=== PATIENT | male | born 1980 | race Caucasian/White ===

== ENCOUNTER 2018-10-08 15:38 | Emergency (ER) | payer OTHER ==
[2018-10-08 15:54] VITALS: PULSE 68; O2SAT 99
--- NOTE | 2018-10-08 16:45 | ERPHSYRPT ---
- History of Present Illness Time Seen by Provider: 10/08/18 16:39 Source: patient Exam Limitations: no limitations Patient Subjective Stated Complaint: Pt states "On saturday I was loading a lawnmower into a truck and the tailgate fell and hit the top of my head and I thought I was ok, but yesterday at work, I started to get a little woozy and my head is fuzzy." Triage Nursing Assessment: Pt presented through the front, alert and oriented X 3, skin pwd. Pt ambulates with an upright steady gait, able to speak in clear full sentences PT able to control oral secretions and swallow without any difficulty. Physician History: 38-year-old white male arrives with complaint of a headache dizziness, symptoms going on for 2 days. According to the patient he was unloading a lawnmower when the tailgate of his truck fell and struck him in the head. He had no loss of consciousness however he states yesterday at work he was feeling dizzy and woozy. Is not having any neck pain is not having any problems moving. Past medical history includes high blood pressure, GERD, depression. Past surgical history includes cholecystectomy. Social history positive tobacco use Timing/Duration: day(s) Severity: moderate (2 days) Modifying Factors: Improves With: nothing Associated Symptoms: headaches, other (dizziness), No nausea, No vomiting, No abdominal pain, No shortness of breath, No heartburn, No diaphoresis, No cough, No chills, No chest pain, No fever, No loss of appetite, No malaise, No rash, No syncope, No seizure, No weakness Allergies/Adverse Reactions: No Known Drug Allergies Allergy (Unverified 10/08/18 15:54) Home Medications: Diazepam [Valium] 2 mg PO DAILY 10/08/18 [History] Hx Tetanus, Diphtheria Vaccination/Date Given: No Hx Influenza Vaccination/Date Given: No Hx Pneumococcal Vaccination/Date Given: No Immunizations Up to Date: Yes - Review of Systems Constitutional: No Fever, No Chills Eyes: No Symptoms Ears, Nose, & Throat: No Symptoms Respiratory: No Cough, No Dyspnea Cardiac: No Chest Pain, No Edema, No Syncope Abdominal/Gastrointestinal: No Abdominal Pain, No Nausea, No Vomiting, No Diarrhea Genitourinary Symptoms: No Dysuria Musculoskeletal: No Back Pain, No Neck Pain Skin: No Rash Neurological: No Dizziness, No Focal Weakness, No Sensory Changes Psychological: No Symptoms Endocrine: No Symptoms All Other Systems: Reviewed and Negative - Past Medical History Pertinent Past Medical History: Yes Neurological History: No Pertinent History ENT History: No Pertinent History Cardiac History: No Pertinent History, Hypertension Respiratory History: Asthma Endocrine Medical History: No Pertinent History Musculoskeletal History: No Pertinent History GI Medical History: GERD History: No Pertinent History Psycho-Social History: Depression Male Reproductive Disorders: No Pertinent History - Past Surgical History Past Surgical History: Yes Other Surgical History: ramesh - Social History Smoking Status: Current every day smoker How long have you smoked: 26 years Exposure to second hand smoke: Yes Drug Use: methamphetamines Patient Lives Alone: No - Nursing Vital Signs Nursing Vital Signs: Initial Vital Signs Temperature 97.9 F 10/08/18 15:47 Pulse Rate 68 10/08/18 15:47 Respiratory Rate 16 10/08/18 15:47 Blood Pressure 131/89 10/08/18 15:47 O2 Sat by Pulse Oximetry 99 10/08/18 15:47 Pain Scale Pain Intensity 5 - Physical Exam General Appearance: no apparent distress, alert Eye Exam: PERRL/EOMI, eyes nml inspection Ears, Nose, Throat Exam: normal ENT inspection, TMs normal, pharynx normal, moist mucous membranes Neck Exam: normal inspection, non-tender, supple, full range of motion Respiratory Exam: normal breath sounds, lungs clear, No respiratory distress Cardiovascular Exam: regular rate/rhythm, normal heart sounds, normal peripheral pulses, capillary refill <2 sec Gastrointestinal/Abdomen Exam: soft, normal bowel sounds, No tenderness, No mass Back Exam: normal inspection, normal range of motion, No CVA tenderness, No vertebral tenderness Extremity Exam: normal inspection, normal range of motion, pelvis stable Neurologic Exam: alert, oriented x 3, 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, 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 Will give patient Tylenol for pain discharge patient diagnoses 1 head contusion 2 concussion. - Departure Departure Disposition: Home Clinical Impression: Head contusion Qualifiers: Encounter type: initial encounter Contusion of head detail: unspecified part of head Qualified Code(s): S00.93XA - Contusion of unspecified part of head, initial encounter Concussion Qualifiers: Encounter type: initial encounter Loss of consciousness presence/duration: without LOC Qualified Code(s): S06.0X0A - Concussion without loss of consciousness, initial encounter Condition: Fair Critical Care Time: No Referrals: Provider,Unknown [Primary Care Provider] - Instructions: Concussion, Adult (DC) Additional Instructions: Return home. Rest. Tylenol every 4 hours as needed for pain. Followup with your family call and schedule follow up appointment. Return for acute distress or for severe symptoms.
[2018-10-08 17:07] VITALS: BP 153/93
--- NOTE | 2018-10-08 17:12 | XRAY ---
Indication: Headache and dizziness following head injury 2 days ago. Multiple contiguous axial images obtained through the head without contrast. Comparison: None Normal appearing brain parenchyma, ventricles, and bony calvarium. Visualized paranasal sinuses and mastoid air cells are clear. Impression: Normal CT head without contrast exam. CTDI 50.14
[2018-10-08] MEDS ORDERED: TYLENOL 325 MG PO ONE (17:15)
[2018-10-08] MEDS ORDERED: TYLENOL 325 MG ONE (17:25)
== END 2018-10-08 18:03 | disposition home or self-care (01) ==
LOC: ED 15:38
DX: S00.93XA Contusion of unspecified part of head, initial encounter (principal); S06.0X0A Concussion without loss of consciousness, initial encounter; W01.198A Fall on same level from slipping, tripping and stumbling with subsequent striking against other object, initial encounter
CPT/HCPCS: 70450; 99283; A9270-GY

== ENCOUNTER 2022-02-27 15:50 | Emergency (ER) | payer OTHER ==
[2022-02-27] MEDS ORDERED: TORAdol 30 mg Injection ONE (16:57)
[2022-02-27] MEDS: TORAdol 30 mg Injection IM ONE (16:58)
[2022-02-27 17:07] LABS: Basophil (Absolute #) 0.14 x10^3/uL (0-0.4); Eosinophil % 2.5 % (0.00-5.0); Hematocrit 42.7 % (42-50); Hemoglobin 14.2 g/dL (12.5-18.0); Lymphocyte (Absolute #) 5.07 x10^3/uL (1.0-4.6); Mean Cell Volume 89.9 fL (78-100); Mean Corpuscular Hemoglobin 29.9 pg (26-32); Mean Corpuscular Hgb Concent. 33.3 g/dL (32-36); Monocyte (Absolute #) 0.83 x10^3/uL (0.0-1.3); Monocytes % 6.9 % (0.0-12.0); Neutrophil % 47.2 % (36.0-66.0); Platelet Count 294 x10^3/uL (150-450); Red Blood Count 4.75 x10^6/uL (4.1-5.6); Red Cell Distribution Width 12.8 % (11.5-14.0); White Blood Count 12.1 x10^3/uL (4.0-10.5)
[2022-02-27 17:36] LABS: ALKALINE PHOSPHATASE 66 U/L (38-126); AMYLASE 73 U/L (30-110); ANION GAP 9.6 MEQ/L (5-15); BLOOD UREA NITROGEN 12 mg/dL (9-20); CHLORIDE 104 mmol/L (98-107); Calcium 8.8 mg/dL (8.4-10.2); Carbon Dioxide 26 mmol/L (22-30); Creatinine 1 1.23 mg/dL (0.66-1.25); EST GLOMERULAR FILTRATION RATE > 60.0 ML/MIN; Glucose 101 mg/dL (74-106); LIPASE 93 U/L (23-300); Potassium 3.3 mmol/L (3.5-5.1); SGOT/AST 24 U/L (17-59); SGPT/ALT 20 U/L (0-50); SODIUM 136 mmol/L (137-145); Total Protein 7.2 g/dL (6.3-8.2)
--- NOTE | 2022-02-27 18:06 | ERPHSYRPT ---
- History of Present Illness Source: patient Exam Limitations: no limitations Patient Subjective Stated Complaint: C/O lower back pain that started yesterday evening. States, "my kidneys hurt." Denies any frequency, urgency, dysuria, or trauma to back or abdomen. Triage Nursing Assessment: Patient ambulated back to ED without difficulties. No SOB. He is alert and oriented. No skin alterations noted to lower back or flanks. Patient is tender to touch. Timing/Duration: yesterday Quality: sharp, aching Back Pain Location: lumbar spine (Bilateral CVA tenderness) Previous symptoms: no prior history Hx Tetanus, Diphtheria Vaccination/Date Given: Yes Hx Influenza Vaccination/Date Given: No Hx Pneumococcal Vaccination/Date Given: No Immunizations Up to Date: Yes <DASH FRIAS - Last Filed: 02/27/22 18:47> <JAKE JAMES - Last Filed: 02/27/22 19:19> - History of Present Illness Time Seen by Provider: 02/27/22 16:40 Physician History: Patient is a 41-year-old male who presents with a complaint of back pain. His pain is primarily in both CVA's. He noted the pain started yesterday evening it seems a little worse on the right. He has no known injury to the back he has no history of renal stones he denies any fever chills or sweats he denies any change in urination. (DASH FRIAS) Allergies/Adverse Reactions: No Known Drug Allergies Allergy (Verified 02/27/22 16:30) Home Medications: Escitalopram Oxalate [Lexapro] 20 mg PO DAILY 02/27/22 [History] Lurasidone HCl [Latuda] 1 tab PO DAILY 02/27/22 [History] Omeprazole 1 tab PO DAILY 02/27/22 [History] Trazodone HCl 50 mg [Desyrel 50 mg] 1 tab PO DAILY 02/27/22 [History] Trihexyphenidyl HCl 1 tab PO BID 02/27/22 [History] Travel Risk - International Travel Have you traveled outside of the country in past 3 weeks: No - Coronavirus Screening Are you exhibiting any of the following symptoms?: No Close contact with a COVID-19 positive Pt in past 14-21 Days: No - Vaccine Status Have you recieved a Covid-19 vaccination: Yes 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 - Vaccination Dates Date of 2cond Vaccination (if applicable): 2020 <ALTAGRACIADASH - Last Filed: 02/27/22 18:47> - Review of Systems Constitutional: No Fever, No Chills Eyes: No Symptoms Ears, Nose, & Throat: No Symptoms Respiratory: No Cough, No Dyspnea Cardiac: No Chest Pain, No Edema, No Syncope Abdominal/Gastrointestinal: No Abdominal Pain, No Nausea, No Vomiting, No Diarrhea Genitourinary Symptoms: No Dysuria Musculoskeletal: Back Pain, No Neck Pain Skin: No Rash Neurological: No Dizziness, No Focal Weakness, No Sensory Changes Psychological: No Symptoms Endocrine: No Symptoms All Other Systems: Reviewed and Negative <ALTAGRACIADASH - Last Filed: 02/27/22 18:47> - Past Medical History Pertinent Past Medical History: Yes Neurological History: No Pertinent History ENT History: No Pertinent History Cardiac History: High Cholesterol, Hypertension Respiratory History: Asthma, COPD Endocrine Medical History: No Pertinent History Musculoskeletal History: No Pertinent History GI Medical History: GERD, Gallbladder Disease History: No Pertinent History Psycho-Social History: Bipolar, Depression Male Reproductive Disorders: No Pertinent History - Past Surgical History Past Surgical History: Yes Gastrointestinal: Cholecystectomy Other Surgical History: ramesh - Social History Smoking Status: Current every day smoker How long have you smoked: 30+ Exposure to second hand smoke: Yes Drug Use: methamphetamines Patient Lives Alone: No <ALTAGRACIADASH Last Filed: 02/27/22 18:47> - Physical Exam General Appearance: mild distress Eye Exam: PERRL/EOMI, eyes nml inspection Neck Exam: normal inspection, non-tender, supple, full range of motion, No meningismus, No midline tenderness Respiratory Exam: normal breath sounds, lungs clear, No respiratory distress Cardiovascular Exam: regular rate/rhythm, normal heart sounds Gastrointestinal Exam: soft, No tenderness, No mass Back Exam: CVA tenderness (Bilateral) Extremity Exam: normal inspection, normal range of motion, No calf tenderness, N o pedal edema Neurologic Exam: alert, oriented x 3, 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, 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, normal mood/affect, nml station & gait, sensation nml, No motor deficits Skin Exam: normal color, warm, dry, No rash SpO2: 98 <DASH FRIAS Last Filed: 02/27/22 18:47> - Nursing Vital Signs Nursing Vital Signs: Initial Vital Signs Temperature 97.6 F 02/27/22 16:32 Pulse Rate 76 02/27/22 16:32 Respiratory Rate 17 02/27/22 16:32 Blood Pressure 139/80 02/27/22 16:32 O2 Sat by Pulse Oximetry 98 02/27/22 16:32 Pain Scale Pain Intensity 4 - Course Nursing assessment & vital signs reviewed: Yes <DASH FRIAS - Last Filed: 02/27/22 18:47> Ordered Tests: Active Orders 24 hr Category Date Time Status ABDOMEN AND PELVIS W/0 CONTRAS [CT] Stat Exams 02/27/22 16:42 Taken AMYLASE Stat Lab 02/27/22 17:00 Completed CBC W DIFF Stat Lab 02/27/22 17:00 Completed CMP Stat Lab 02/27/22 17:00 Completed LIPASE Stat Lab 02/27/22 17:00 Completed Lactic Acid Stat Lab 02/27/22 16:42 Completed UA W/RFX CULTURE Stat Lab 02/27/22 18:56 Received Medication Summary Discontinued Medications Generic Name Dose Route Start Last Admin Trade Name Isaiah PRN Reason Stop Dose Admin Ketorolac Tromethamine 30 mg 02/27/22 16:43 02/27/22 16:58 Ketorolac Tromethamine 30 Mg/Ml Inj IM 02/27/22 16:44 30 mg STAT ONE Administration Ketorolac Tromethamine Confirm 02/27/22 16:57 Ketorolac Tromethamine 30 Mg/Ml Inj Administered 02/27/22 16:58 Dose 30 mg .ROUTE .STK-MED ONE Lab/Rad Data: Laboratory Result Diagrams 02/27/22 17:00 02/27/22 17:00 Laboratory Results 02/27/22 02/27/22 02/27/22 Range/Units 17:00 17:00 16:42 WBC 12.1 H (4.0-10.5) x10^3/uL RBC 4.75 (4.1-5.6) x10^6/uL Hgb 14.2 (12.5-18.0) g/dL Hct 42.7 (42-50) % MCV 89.9 (78-100) fL MCH 29.9 (26-32) pg MCHC 33.3 (32-36) g/dL RDW 12.8 (11.5-14.0) % Plt Count 294 (150-450) x10^3/uL MPV 9.0 (7.5-11.0) fL Gran % 47.2 (36.0-66.0) % Immature Gran % (Auto) 0.2 (0.00-0.4) % Nucleat RBC Rel Count 0.0 (0.00-0.1) % Eos # (Auto) 0.30 (0-0.5) x10^3/uL Immature Gran # (Auto) 0.03 (0.00-0.03) x10^3u/L Absolute Lymphs (auto) 5.07 H (1.0-4.6) x10^3/uL Absolute Monos (auto) 0.83 (0.0-1.3) x10^3/uL Absolute Nucleated RBC 0.00 (0.00-0.01) x10^3u/L Lymphocytes % 42.0 (24.0-44.0) % Monocytes % 6.9 (0.0-12.0) % Eosinophils % 2.5 (0.00-5.0) % Basophils % 1.2 (0.0-0.4) % Absolute Granulocytes 5.70 (1.4-6.9) x10^3/uL Basophils # 0.14 (0-0.4) x10^3/uL Sodium 136 L (137-145) mmol/L Potassium 3.3 L (3.5-5.1) mmol/L Chloride 104 (98-107) mmol/L Carbon Dioxide 26 (22-30) mmol/L Anion Gap 9.6 (5-15) MEQ/L BUN 12 (9-20) mg/dL Creatinine 1.23 (0.66-1.25) mg/dL Estimated GFR > 60.0 ML/MIN Glucose 101 (74-106) mg/dL Lactic Acid 1.0 (0.4-2.0) Calcium 8.8 (8.4-10.2) mg/dL Total Bilirubin 0.60 (0.2-1.3) mg/dL AST 24 (17-59) U/L ALT 20 (0-50) U/L Alkaline Phosphatase 66 (38-126) U/L Serum Total Protein 7.2 (6.3-8.2) g/dL Albumin 4.0 (3.5-5.0) g/dL Amylase 73 (30-110) U/L Lipase 93 (23-300) U/L - Progress Progress: improved, re-examined Counseled pt/family regarding: lab results, diagnosis, need for follow-up, rad results <JAKE JAMES - Last Filed: 02/27/22 19:19> - Progress Progress Note: 02/27/22 19:18 CAT scan of the abdomen pelvis without contrast is a normal study without acute findings (JAKE JAMES) - Departure Departure Disposition: Home Critical Care Time: No <DASH FRIAS - Last Filed: 02/27/22 18:47> <JAKE JAMES - Last Filed: 02/27/22 19:19> - Departure Clinical Impression: Back pain Condition: Stable Referrals: KATE REAL MD [Primary Care Provider] - Follow up/PCP as directed
[2022-02-27 19:21] LABS: Appearance CLEAR (CLEAR); Bilirubin NEGATIVE (NEGATIVE); Dipstick done @ ? MAIN LAB; Glucose NEGATIVE (NEGATIVE); Ketones NEGATIVE (NEGATIVE); Nitrite NEGATIVE (NEGATIVE); Ph 5.5 (5-6); Protein,Urine Dip NEGATIVE (Negative); RBC NEGATIVE Ery/ul (0-5); Specific Gravity 1.025 (1.005-1.025); Urobilinogen 0.2 mg/dL (0-1)
[2022-02-27 19:25] LABS: Mucus SLIGHT /HPF (NEGATIVE); Urine Cultured Indicated? NO; WBC 0-2 /HPF (0-5)
[2022-02-27] MEDS ORDERED: PERCOCET TABLET 5/325MG ONE (19:37)
[2022-02-27] MEDS ORDERED: Klor Con PO ONE (19:37)
[2022-02-27] MEDS: Klor Con PO ONE (19:38)
[2022-02-27] MEDS: PERCOCET TABLET 5/325MG PO STA (19:38)
[2022-02-27 19:49] VITALS: BP 143/99; PULSE 65; O2SAT 98
[2022-02-27 19:57] LABS: Slide Review 1 YES
--- NOTE | 2022-02-28 08:39 | XRAY ---
Indication: Bilateral flank pain. Multiple contiguous axial images obtained through the abdomen and pelvis without contrast using renal stone protocol. Comparison: None Lung bases clear. Heart not enlarged. No renal calculus or evidence for obstructive uropathy in either system. Stomach is distended with food/fluid. Noncontrasted stomach and bowel loops appear nonobstructed with normal air-filled appendix. No free fluid/air. Previous cholecystectomy. Remaining liver, pancreas, spleen, adrenal glands, kidneys, ureters, and bladder are unremarkable for noncontrast exam. Minimal aortoiliac calcifications without AAA. Osseous structures intact. No ventral or inguinal hernias. Impression: 1. Negative renal calculus or evidence for obstructive uropathy. 2. Remaining CT abdomen/pelvis without contrast exam is negative.
== END 2022-02-27 19:49 | disposition home or self-care (01) ==
LOC: ED 15:50
DX: M54.50 Low back pain, unspecified (principal); E87.6 Hypokalemia; I10 Essential (primary) hypertension; Z79.899 Other long term (current) drug therapy
CPT/HCPCS: 36415; 74176; 80053; 81015; 82150; 83605; 83690; 85025; 96372; 99284; J1885; A9270-GY

== ENCOUNTER 2024-04-23 12:26 | Day surgery (SDC) | payer BC, OTHER ==
[2024-04-23] MEDS ORDERED: Xylocaine-Mpf 2% 5 Ml Vial IJ ONE (12:27)
[2024-04-23] MEDS ORDERED: DIPRIVAN 200 MG/20 ML IV ONE (14:32)
--- NOTE | 2024-04-23 16:48 | XRAY ---
Indication: Bilateral L4-S1 MBB. Intraoperative fluoroscopy provided for 18 seconds. Single digital spot image submitted for interpretation demonstrates posterior needle tips projecting over expected left and right L4-S1 nerve roots. Correlate with intraoperative findings/report.
--- NOTE | 2024-04-23 16:54 | XRAY ---
18 seconds of fluoroscopy was used in surgery for a bilateral L4-S1 MBB.
== END 2024-04-23 15:02 | disposition home or self-care (01) ==
LOC: SDC-PAIN 12:26
PROVIDERS: ATTEND Psychiatry & Neurology Pain Medicine
DX: M47.816 Spondylosis without myelopathy or radiculopathy, lumbar region (principal)
CPT/HCPCS: 64493; 64494; 72020; 77002; J2704

== ENCOUNTER 2024-05-21 12:19 | Day surgery (SDC) | payer BC, OTHER ==
[2024-05-21] MEDS ORDERED: LIDOCAINE HCL 1% 50 MG/5 ML VL IJ ONE (12:20)
[2024-05-21] MEDS ORDERED: methylPREDNISolone acetate IM ONE (12:20)
[2024-05-21] MEDS ORDERED: BUPIVACAINE 0.5% VIAL IJ ONE (12:20)
[2024-05-21] MEDS ORDERED: dexAMETHasone sodium phosphate IJ ONE (12:20)
--- NOTE | 2024-05-21 17:17 | XRAY ---
Indication: Bilateral piriformis and left hip injection. Intraoperative fluoroscopy provided for 57 seconds. 4 digital spot images obtained prone submitted for interpretation demonstrates posterior needle tip projecting over left and right piriformis. Additional needle tip lateral to the left femur neck. Small amount of contrast injected for all needle tip placement. Correlate with intraoperative findings/report.
--- NOTE | 2024-05-21 17:33 | XRAY ---
57 seconds of fluoroscopy was used in surgery for a bilateral piriformis and left intra-articular hip injection.
== END 2024-05-21 15:58 | disposition home or self-care (01) ==
LOC: SDC-PAIN 12:19
PROVIDERS: ATTEND Psychiatry & Neurology Pain Medicine
DX: M79.18 Myalgia, other site (principal); M16.12 Unilateral primary osteoarthritis, left hip
CPT/HCPCS: 20552; 20610; 73501; 77002; J1010; J1100; Q9966

== ENCOUNTER 2024-08-26 13:39 | Day surgery (SDC) | payer OTHER ==
[2024-08-26] MEDS ORDERED: BUPIVACAINE 0.5% VIAL IJ ONE (13:40)
[2024-08-26] MEDS ORDERED: propofoL IV ONE ×2 (16:18→16:26)
--- NOTE | 2024-08-26 20:43 | XRAY ---
Indication: Bilateral L4-S1 MBB. Intraoperative fluoroscopy provided for 14 seconds. Single digital spot image submitted for interpretation demonstrates posterior needle tips projecting over expected left and right L4-S1 nerve roots. Correlate with intraoperative findings/report.
--- NOTE | 2024-08-27 19:24 | XRAY ---
14 seconds of fluoroscopy was used in surgery for a bilateral L4-S1 MBB.
== END 2024-08-26 16:47 | disposition home or self-care (01) ==
LOC: SDC-PAIN 13:39
PROVIDERS: ATTEND Psychiatry & Neurology Pain Medicine
DX: M47.817 Spondylosis without myelopathy or radiculopathy, lumbosacral region (principal)
CPT/HCPCS: 64493; 64494; 72020; J2704

== ENCOUNTER 2024-09-17 10:24 | Day surgery (SDC) | payer OTHER ==
[2024-09-17] MEDS ORDERED: methylPREDNISolone acetate IM ONE (10:25)
[2024-09-17] MEDS ORDERED: BUPIVACAINE 0.5% VIAL IJ ONE (10:25)
[2024-09-17] MEDS ORDERED: LIDOCAINE HCL 1% AMPUL 5 ML IJ ONE (10:25)
[2024-09-17] MEDS ORDERED: propofoL IV ONE ×2 (11:56→12:11)
[2024-09-17] MEDS ORDERED: Lactated Ringers 1,000 ML IV ONE (12:22)
--- NOTE | 2024-09-17 13:21 | XRAY ---
Indication: Left L4-S1 RFA. Intraoperative fluoroscopy for right for 27 seconds. 6 digital spot image submitted for interpretation demonstrates posterior needle tips projecting over expected left L4-S1 nerve roots. Correlate with intraoperative findings/report.
--- NOTE | 2024-09-17 13:22 | XRAY ---
27 seconds of fluoroscopy were used in surgery for a left L4-S1 RFA.
== END 2024-09-17 12:30 | disposition home or self-care (01) ==
LOC: SDC-PAIN 10:24
PROVIDERS: ATTEND Psychiatry & Neurology Pain Medicine
DX: M47.817 Spondylosis without myelopathy or radiculopathy, lumbosacral region (principal)
CPT/HCPCS: 64635; 64636; 72100; J1010; J2704

== ENCOUNTER 2024-09-23 11:21 | Day surgery (SDC) | payer OTHER ==
[2024-09-23] MEDS ORDERED: LIDOCAINE HCL 1% 50 MG/5 ML VL IJ ONE (11:22)
[2024-09-23] MEDS ORDERED: methylPREDNISolone acetate IM ONE (11:22)
[2024-09-23] MEDS ORDERED: BUPIVACAINE 0.5% VIAL IJ ONE (11:22)
[2024-09-23] MEDS ORDERED: propofoL IV ONE (13:54)
[2024-09-23] MEDS ORDERED: Lactated Ringers 1,000 ML IV ONE (16:36)
--- NOTE | 2024-09-23 21:08 | XRAY ---
Indication: Right L4-S1 RFA. Intraoperative fluoroscopy provided for 25 seconds. 3 digital spot image submitted for interpretation demonstrates posterior needle tips projecting over expected right L4-S1 nerve roots. Correlate with intraoperative findings/report.
--- NOTE | 2024-09-23 21:22 | XRAY ---
25 seconds of fluoroscopy was used in surgery for a right L4-S1 RFA.
== END 2024-09-23 14:25 | disposition home or self-care (01) ==
LOC: SDC-PAIN 11:21
PROVIDERS: ATTEND Psychiatry & Neurology Pain Medicine
DX: M47.817 Spondylosis without myelopathy or radiculopathy, lumbosacral region (principal)
CPT/HCPCS: 64635; 64636; 72100; J1010; J2704

== ENCOUNTER 2025-04-22 13:47 | Day surgery (SDC) | payer OTHER ==
[2025-04-22] MEDS ORDERED: BUPIVACAINE 0.5% VIAL IJ ONE (13:48)
[2025-04-22] MEDS ORDERED: methylPREDNISolone acetate IM ONE (13:48)
[2025-04-22] MEDS ORDERED: propofoL IV ONE (15:52)
[2025-04-22] MEDS ORDERED: Lactated Ringers 1,000 ML IV ONE (16:04)
--- NOTE | 2025-04-22 17:10 | XRAY ---
Indication: Bilateral L2-L4 MBB. Intraoperative fluoroscopy provided for 14 seconds. 2 digital spot images submitted for interpretation demonstrates posterior needle tips projecting over expected left and right L2-L4 nerve roots. Correlate with intraoperative findings/report.
--- NOTE | 2025-04-23 09:00 | XRAY ---
14 seconds of fluoroscopy were used in surgery for a bilateral L2-L4 MBB.
== END 2025-04-22 16:20 | disposition home or self-care (01) ==
LOC: SDC-PAIN 13:47
PROVIDERS: ATTEND Psychiatry & Neurology Pain Medicine
DX: M47.817 Spondylosis without myelopathy or radiculopathy, lumbosacral region (principal)